=== PATIENT | male | born 1995 | race Asian ===

== ENCOUNTER 2019-07-29 19:13 | Emergency (ER) | payer OTHER ==
[~2019-07-29] VITALS: Ht 175.3 cm; Wt 90.7 kg
[2019-07-29 19:18] VITALS: BP_SYST 142
[2019-07-29] MEDS ORDERED: KETOROLAC TROMETHAMINE 30 MG VIAL IVP ONE (20:00)
[2019-07-29] MEDS ORDERED: NACL 0.9% 1,000 ML IV ONE (20:00)
[2019-07-29 20:19] LABS: BASOPHILS # (AUTO) 0.1 K/uL (0.0-0.2); BASOPHILS % (AUTO) 0.8 % (0.0-2.0); EOSINOPHILS # (AUTO) 0.2 K/uL (0.0-0.4); EOSINOPHILS % (AUTO) 1.4 % (0.0-4.0); HEMATOCRIT 43.9 % (36-54); HEMOGLOBIN 14.7 g/dL (14.0-18.0); LYMPHOCYTES # (AUTO) 2.2 K/uL (1.0-5.5); LYMPHOCYTES % (AUTO) 19.3 % (20.5-51.5); MEAN CORPUSCULAR HEMOGLOBIN 29 pg (27-31); MEAN CORPUSCULAR HGB CONC 33 % (32-36); MEAN CORPUSCULAR VOLUME 87 fL (79.0-98.0); MONOCYTES # (AUTO) 0.6 K/uL (0.0-1.0); MONOCYTES % (AUTO) 5.2 % (1.7-9.3); NEUTROPHILS # (AUTO) 8.4 K/uL (1.8-7.7); NEUTROPHILS % (AUTO) 73.3 % (40.0-70.0); PLATELET COUNT (AUTO) 374 K/uL (130-430); RED BLOOD CELL COUNT(AUTO) 5.07 MIL/uL (4.2-6.2); RED CELL DISTRIBUTION WIDTH 14.2 % (9.0-15.0); WHITE BLOOD COUNT (AUTO) 11.4 K/uL (4.8-10.8)
[2019-07-29 20:20] LABS: BILIRUBIN,URINE NEGATIVE (NEGATIVE); BLOOD, URINE NEGATIVE (NEGATIVE); CLARITY/URINE CLEAR (CLEAR); COLOR,URINE YELLOW (YELLOW); GLUCOSE,URINE NEGATIVE (NEGATIVE); KETONES,URINE 1+ (NEGATIVE); LEUKOCYTE ESTERASE ,URINE NEGATIVE (NEGATIVE); NITRITE, URINE NEGATIVE (NEGATIVE); PROTEIN URINE NEGATIVE (NEGATIVE); UROBILINOGEN,URINE 0.2 (0.2-1.0)
[2019-07-29 20:27] LABS: ANION GAP 9 (5-15); CALCIUM 8.3 mg/dL (8.4-11.0); CHLORIDE 102 mmol/L (98-107); CREATININE 1.29 mg/dL (0.55-1.30); GLUCOSE 96 mg/dL (70-99); SODIUM SERUM 138 mmol/L (136-145); UREA NITROGEN, BLOOD 12 mg/dL (8-21)
[2019-07-29 20:33] LABS: GFR AFRICAN AMERICAN 87 mL/min (>90)
[2019-07-29 20:34] LABS: POTASSIUM 3.7 mmol/L (3.5-5.1)
[2019-07-29 20:35] LABS: ALANINE AMINOTRANSFERASE 23 U/L (12-78); ALBUMIN 3.7 g/dL (3.4-4.8); ASPARTATE AMINOTRANSFERASE 23 U/L (10-37); TOTAL BILIRUBIN 0.6 mg/dL (0.0-1.0)
[2019-07-29] MEDS ORDERED: HYDROcodone/ACETAMIN 5-325 MG TAB (NORCO/ VICODIN) PO ONE (21:00)
[2019-07-29 22:16] VITALS: BP_SYST 142
== END 2019-07-29 22:16 | disposition home or self-care (01) ==
LOC: SED 19:13
DX: R07.89 Other chest pain (principal)
CPT/HCPCS: 36415; 71045; 80053; 81003; 83880; 84484; 85025; 85379; 93005; 96374; 99285; J1885; J7030